=== PATIENT | male | born 2000 | race Two or more races ===

== ENCOUNTER 2025-02-24 18:53 | Emergency (ER) | payer MEDICAID, OTHER ==
[~2025-02-24] VITALS: Ht 182.9 cm; Wt 90.6 kg
[2025-02-24 19:05] VITALS: BP 150/99; PULSE 97; RESP 16; TEMP 98; O2SAT 96
[2025-02-24] MEDS: cefTRIAXone SOD 1,000 MG VL IM ONE (20:20)
[2025-02-24] MEDS: AZITHROMYCIN 250 MG TAB PO ONE (20:20)
[2025-02-24] MEDS ORDERED: METH4PAK PO (20:26)
--- NOTE | 2025-02-24 20:30 | ED.PDOC ---
SOB-HPI HPI Comments 24-year-old male presents to ED chief complaint joint pain. States around 2 weeks ago he was sick with flu-like symptoms which have resolved. The past week patient has been experience intermittent joint pain wrists elbows and knees. Isn't taking anything [id number] for the pain. Patient also states possible exposure to STD he he notes 1 of his partners informed him she tested positive for chlamydia patient does say that he does not use protection also states he has no symptoms currently and would like to get treated. Fever, chills, nausea, vomiting, chest pain, abdominal pain, CRI, penile discharge, shortness of breath, or difficulty breathing. Chief Complaint: Flu like Time Seen by MD: 19:09 Primary Care Provider: NONE Reviewed notes: Nurses Notes, Medications, Allergies Information Source: Patient Mode of Arrival: Ambulatory Past Medical History PAST MEDICAL HISTORY: Denies Surgical History: Denies all surgeries Family History Family History: Reviewed,noncontributory to illness Social History Smoker: Non-Smoker Alcohol: Denies ETOH Use Drugs: Denies Drug Use Constitutional: denies: chills, diaphoresis, fatigue, fever, malaise, sweats, weakness, others EENTM: denies: blurred vision, double vision, ear bleeding, ear discharge, ear drainage, ear pain, ear ringing, eye pain, eye redness, hearing loss, mouth pain, mouth swelling, nasal discharge, nose bleeding, nose congestion, nose pain, photophobia, tearing, throat pain, throat swelling, voice changes, others Respiratory: denies: cough, hemoptysis, orthopnea, SOB at rest, shortness of breath, SOB with excertion, stridor, wheezing, others Cardiovascular: denies: chest pain, dizzy spells, diaphoresis, Dyspnea on exertion, edema, irregular heart beat, left arm pain, lightheadedness, palpitations, PND, syncope, others Gastrointestinal: denies: abdomen distended, abdominal pain, blood streaked bowels, constipated, diarrhea, dysphagia, difficulty swallowing, hematemesis, melena, nausea, poor appetite, poor fluid intake, rectal bleeding, rectal pain, vomiting, others Genitourinary: denies: burning, dysuria, flank pain, frequency, hematuria, incontinence, penile discharge, penile sore, pain, testicle pain, testicle swelling, urgency, others Neurological: denies: dizziness, fainting, headache, left sided numbness, left sided weakness, numbness, paresthesia, pre-existing deficit, right sided numbness, right sided weakness, seizure, speech problems, tingling, tremors, weakness, others Musculoskeletal: reports: joint pain, muscle pain; denies: back pain, gout, joint swelling, muscle stiffness, neck pain, others Integumetry: denies: bruises, change in color, change in hair/nails, dryness, laceration, lesions, lumps, rash, wounds, others Allergic/Immunocompromised: denies: Difficulty Healing, Frequent Infections, Hives, Itching, others Hematologic/Lymphatic: denies: anemia, blood clots, easy bleeding, easy bruising, swollen glands, others Endocrine: denies: excessive hunger, excessive sweating, excessive thirst, excessive urination, flushing, intolerance to cold, intolerance to heat, unexplained weight gain, unexplained weight loss, others Psychiatric: denies: anxiety, bipolar disorder, depression, hopeless, panic disorder, schizophrenia, sleepless, suicidal, others Physical Exam General Appearance: No Apparent Distress, Normal HEENT: Normal ENT Inspection, Pharynx Normal, TMs Normal Neck: Full Range of Motion, Non-Tender, Normal, Normal Inspection Respiratory: Lungs Clear, No Respiratory Distress, Normal Breath Sounds Cardiovascular: No Edema, No JVD, No Murmur, No Gallop, Normal Peripheral Pulses, Regular Rate/Rhythm Breast Exam: Deferred Gastrointestinal: No Organomegaly, Non Tender, No Pulsatile Mass, Normal Bowel Sounds, Soft Genitalia: Deferred Pelvic: Deferred Rectal: Deferred Extremities: Normal capillary refill, Normal inspection, Normal range of motion, Non-tender, No pedal edema Musculoskeletal : Apperance: Normal Neurologic: Alert, street vendor II-XII nml as Tested, No Motor Deficits, Normal Affect, Normal Mood, No Sensory Deficits Cerebellar Function: Normal Reflexes: Normal Skin: Dry, Normal Color, Warm Lymphatic: No Adenopathy Was a procedure done? Was a procedure done?: No Differential Dx Differential Diagnosis: Pneumonia, Sinusitis, Allergic Rhinitis, Otitis Media X-Ray, Labs, Meds, VS Vital Signs Date Time Temp Pulse Resp B/P (MAP) Pulse Ox O2 Delivery O2 Flow Rate FiO2 02/24/25 19:05 98.0 97 16 150/99 (116) 96 98.0 02/24/25 19:05 97 16 96 Room Air 02/24/25 19:00 98.0 97 16 150/99 (116) 96 98.0 Current Medications Medications (Trade) Dose Ordered Sig/Roxanne Route Start Time Stop Time Status Last Admin Ceftriaxone Sodium (Rocephin) 1,000 mg ONCE ONCE IM 02/24/25 20:15 02/24/25 20:16 DC 02/24/25 20:20 Azithromycin (Zithromax Tablet) 1,000 mg ONCE ONCE PO 02/24/25 20:15 02/24/25 20:16 DC 02/24/25 20:20 X-Ray, Labs, Meds, VS Comment Likely post subacute COVID symptoms with COVID 19. Taking multivitamin vitamin- D. Patient treated for possible exposure to STD Rocephin 1 g IM and azithromycin 1 g p.o.. Advised on side effects. Follow up with his PCP in 2-3 days as necessary. The call Tylenol or Motrin as needed for the joint pain per label dosing instructions. ER return precautions given patient indicates understanding and agrees with discharge plan of care. Time of 1ST Reevaluation: 20:22 Reevaluation 1ST: Improved Patient Education/Counseling: Diagnosis, Treatment, Prognosis, Need For Follow Up Family Education/Counseling: No Family Present Departure 1 Departure Time of Disposition: 20:25 Impression: Primary Impression: Possible exposure to STD Additional Impression: Joint pain Qualified Codes: M25.50 - Pain in unspecified joint Disposition: 01 HOME / SELF CARE / HOMELESS Condition: Stable e-Prescriptions Methylprednisolone (Medrol Dosepak) 4 Mg Feng 4 MG PO UD for 6 Days, #21 TAB UAD Prov: VIKTORIYA DARBY 02/24/25 Discharged With: Self Critical Care Note Critical Care Time?: No Stability Stability form required: No Heart Score Heart Score: Heart Score Response (Comments) Value History N/A 0 EKG N/A 0 Age <45 0 Risk Factors N/A 0 Troponin N/A 0 Total 0 VIKTORIYA DARBY Feb 24, 2025 20:30
== END 2025-02-24 20:46 | disposition home or self-care (01) ==
LOC: ER 18:53
DX: M25.529 Pain in unspecified elbow (principal); M25.539 Pain in unspecified wrist; M25.569 Pain in unspecified knee
CPT/HCPCS: 96372; 99283; J0696

== ENCOUNTER 2025-02-25 13:06 | Emergency (ER) | payer MEDICAID ==
[~2025-02-25] VITALS: Ht 180.3 cm; Wt 89.2 kg
[~2025-02-25 13:06] MED LIST: METH4PAK PO
--- NOTE | 2025-02-25 16:00 | ED.PDOC ---
Musculoskeletal HPI Comments A 24-year-old male with no past medical history presents to the emergency department with a chief complaint of bilateral elbow and wrist pain onset 4 days. Patient states he has been experiencing bilateral elbow, wrist pain for the past 4 days, noticed joints get swollen and red, intermittently. He was seen in this ED yesterday, states he was prescribed medication but did not take it, returned today for a second opinion. No other symptoms or modifying factors present at this time. Denies fevers chills night sweats nausea vomiting Denies previous surgeries to the shoulder, wrist, elbow or significant injury Numbness/tingling down the arm Denies changes, shortness of breath Denies head injury Chief Complaint: Upper Extremity Time Seen by MD: 15:00 Primary Care Provider: Sarath Valladares Notes: Nurses Notes, Medications, Allergies Allergies: Coded Allergies: NO KNOWN ALLERGIES (Unverified , 02/24/25) Home Meds Active Scripts Methylprednisolone (Medrol Dosepak) 4 Mg Feng, 4 MG PO UD for 6 Days, #21 TAB UAD Prov:VIKTORIYA DARBY [facility] 02/24/25 Information Source: Patient Mode of Arrival: Ambulatory Location: Bilateral Extremity Location: Elbow, Wrist Timing: Days Prehospital treatment: None Severity: Moderate Able to Move Extremity: Yes Bear Weight: Fully Pain: Moderate Mechanism: Spontaneous Circumstances: Spontaneous Onset of Symptoms: Spontaneous Symptoms: Swelling, Pain, Erythema DVT Risk Factors: NONE Last Tetanus: UTD Associated signs and symptoms: Wrist pain, Elbow pain Past Medical History PAST MEDICAL HISTORY: Denies Surgical History: Denies all surgeries Family History Family History: Reviewed,noncontributory to illness Social History Smoker: Non-Smoker Alcohol: Occasionally Drugs: Denies Drug Use, Marijuana Lives In: Home All Other Systems: Reviewed and Negative (as per HPI) Physical Exam General Appearance: No Apparent Distress, Normal HEENT: Normal ENT Inspection, Pharynx Normal, TMs Normal Neck: Full Range of Motion, Non-Tender, Normal, Normal Inspection Respiratory: Chest Non-Tender, Lungs Clear, No Accessory Muscle Use, No Respiratory Distress, Normal Breath Sounds Cardiovascular: No Edema, No JVD, No Murmur, No Gallop, Normal Peripheral Pulses, Regular Rate/Rhythm Breast Exam: Deferred Gastrointestinal: No Organomegaly, Non Tender, No Pulsatile Mass, Normal Bowel Sounds, Soft Genitalia: Deferred Pelvic: Deferred Rectal: Deferred Extremities: No calf tenderness, Normal capillary refill, Normal inspection, Normal range of motion, Non-tender, No pedal edema Musculoskeletal : Location: Bilateral Extremity Location: Elbow, Wrist, Other (no swelling, full passive and act hugh ROM, no TTP, neurovascular intact, radial pulses 2+ ) Apperance: Normal Neurologic: Alert, pediatric allergist II-XII nml as Tested, No Motor Deficits, Normal Affect, Normal Mood, No Sensory Deficits Cerebellar Function: Normal Reflexes: Normal Skin: Dry, Normal Color, Warm Lymphatic: No Adenopathy Was a procedure done? Was a procedure done?: No Differential Diagnosis EXT Differential Diagnosis: Cellulitis, Deep Vein Thrombosis, Sprain, Other X-Ray, Labs, Meds, VS Vital Signs Date Time Temp Pulse Resp B/P (MAP) Pulse Ox O2 Delivery O2 Flow Rate FiO2 02/25/25 17:44 98.7 78 16 131/78 (95) 98 98.7 02/25/25 13:54 83 14 95 Room Air 02/25/25 13:54 99.6 83 14 132/71 (91) 95 99.6 02/25/25 13:28 99.6 83 16 132/71 (91) 95 99.6 Lab Test 02/25/25 15:45 Range/Units White Blood Count 7.6 4.4-10.8 10^3/uL Red Blood Count 5.51 4.5-5.90 10^6/uL Hemoglobin 16.3 13.5-17.5 g/dL Hematocrit 46.5 41.0-53.0 % Mean Corpuscular Volume 84.3 80.0-100.0 fL Mean Corpuscular Hemoglobin 29.6 28.0-32.0 pg Mean Corpuscular Hemoglobin Concent 35.1 32.0-36.0 g/dL Red Cell Distribution Width 12.9 11.8-14.3 % Platelet Count 297 140-450 10^3/uL Mean Platelet Volume 7.4 6.9-10.8 fL Neutrophils (%) (Auto) 61.0 37.0-80.0 % Lymphocytes (%) (Auto) 32.3 10.0-50.0 % Monocytes (%) (Auto) 5.2 0.0-12.0 % Eosinophils (%) (Auto) 0.6 0.0-7.0 % Basophils (%) (Auto) 0.9 0.0-2.0 % Neutrophils # (Auto) 4.6 1.6-8.6 10 ^3/uL Lymphocytes # (Auto) 2.4 0.4-5.4 10 ^3/uL Monocytes # (Auto) 0.4 0-1.3 10 ^3/uL Eosinophils # (Auto) 0 0-0.8 10 ^3/uL Basophils # (Auto) 0.1 0-0.2 10 ^3/uL Nucleated Red Blood Cells 0.5 % Sodium Level 143 136-145 mmol/L Potassium Level 4.1 3.5-5.1 mmol/L Chloride Level 109 H 98-107 mmol/L Carbon Dioxide Level 28 20-31 mmol/L Anion Gap 6 5-15 Blood Urea Nitrogen 10 9-23 mg/dL Creatinine 0.96 0.700-1.30 mg/dL Glomerular Filtration Rate Calc 112 >90 mL/min BUN/Creatinine Ratio 10.4 10.0-20.0 Serum Glucose 92 74-106 mg/dL Calcium Level 10.4 8.7-10.4 mg/dL DIAGNOSTIC IMAGING Diagnostic Imaging Report : [id number] Signed PATIENT: LIZABETH LARSEN ACCT: [id number] UNIT: [id number] : 2000 LOC: ER ROOM / BED: / AGE / SEX: 24 / M ADM STATUS: REG ER SERVICE [id number] ORDERING PHYSICIAN: MARCUS ADAMS NP PROCEDURE(s): LUDVT - LT Upper DVT REASON: ELBOW PAIN ORDER NUMBER(s): [id number], ACCESSION NUMBER(s): [id number] Left upper extremity venous Doppler INDICATION: ELBOW PAIN TECHNIQUE: Duplex venous sonography was performed with real-time and flow sensitive images submitted for evaluation. FINDINGS: Normal phasic venous flow. Veins are fully compressible. No filling defects. IMPRESSION: 1. No evidence of deep vein thrombosis left upper extremity.. ATED BY: DESTINI HERNANDEZ MD DICTATED DATE/TIME: 02/25/251733 SIGNED BY: DESTINI HERNANDEZ MD SIGNED DATE/TIME: 02/25/251733 CC: X-Ray, Labs, Meds, VS Comment A 24-year-old male with no past medical history presents to the emergency department with a chief complaint of bilateral elbow and wrist pain onset 4 days. The patient presents with signs and symptoms concerning for deep venous thrombosis. The differential diagnosis includes but is not limited to: DVT, thrombophlebitis, trauma, venous stasis, peripheral edema, cellulitis. Peripheral IV insertion+ labs were ordered. CBC was ordered to exclude anemia, blood loss, or infection. BMP was ordered to exclude electrolyte abnormalities, renal failure, dehydration, hyperglycemia Diagnostic imaging ordered by me and results interpreted by radiology : US LT UPPER DVT: NEG. On reevaluation, patient had symptomatic improvement. Patient is stable for discharge at this time. External notes reviewed. Test results and diagnostic imaging interpreted. All diagnostic findings, discharge care, education and instructions provided Follow-up with PCP in 2 to 3 days Patient verbalized understanding and agreed to treatment plan Vital signs stable, afebrile, no acute distress noted Patient ambulatory with strong steady gait Advised to return precautions for any new or worsening symptoms, return to ER immediately for re-evaluation Patient is aware that the purpose of this visit was for an acute medical emergency requiring emergent stabilization. Chronic conditions, including malignancies have not been ruled out. Patient is instructed to follow up with PCP as directed and discharge instructions for continued care and workup. If unable to arrange follow-up, patient is to return to the emergency department for reassessment. Patient (parent or legal guardian if applicable) was given verbal and written discharge instructions and acknowledges understanding. Additional MDM Review of External, Non-ED records: External records reviewed. Discussion with independent historian (EMS, family) history obtained from the pa tient/parents (if applicable) at bedside Chronic conditions affecting care: None Social determinants of health affecting care: marijuana, ETOH occasionally Consideration of admission (observation or admission): I considered escalation of care to admission for this patient, however given the reassuring workup, the patient is safe for outpatient management. Time of 1ST Reevaluation: 15:30 Reevaluation 1ST: Improved Patient Education/Counseling: Diagnosis, Treatment, Need For Follow Up Family Education/Counseling: No Family Present Departure 1 Departure Time of Disposition: 17:38 Impression: Primary Impression: Left arm pain Disposition: 01 HOME / SELF CARE / HOMELESS Condition: Stable Discharged With: Self Critical Care Note Critical Care Time?: No Stability Stability form required: No Heart Score Heart Score: Heart Score Response (Comments) Value History N/A 0 EKG N/A 0 Age N/A 0 Risk Factors N/A 0 Troponin N/A 0 Total 0 I personally scribed for MARCUS ADAMS NP ([email or web address]) on 02/25/25 at 16:00. Electr onically submitted by Rohini Paige ([email or web address]). I personally scribed for MARCUS ADAMS NP ([email or web address]) on 02/25/25 at 17:46. Electronically submitted by Rohini Paige ([email or web address]). I personally scribed for MARCUS ADAMS NP ([employer]) on 02/25/25 at 17:47. Electronically submitted by Rohini Paige ([email or web address]). MARCUS ADAMS NP Feb 25, 2025 16:00
[2025-02-25 16:03] LABS: Basophils # (auto) 0.1 10 ^3/uL (0-0.2); Basophils % (auto) 0.9 % (0.0-2.0); Eosinophils # (auto) 0 10 ^3/uL (0-0.8); Eosinophils % (auto) 0.6 % (0.0-7.0); Hematocrit 46.5 % (41.0-53.0); Hemoglobin 16.3 g/dL (13.5-17.5); Lymphocytes # (auto) 2.4 10 ^3/uL (0.4-5.4); Lymphocytes % (auto) 32.3 % (10.0-50.0); Mean Corpuscular Hemoglobin 29.6 pg (28.0-32.0); Mean Corpuscular Hgb Conc. 35.1 g/dL (32.0-36.0); Mean Corpuscular Volume 84.3 fL (80.0-100.0); Monocytes # (auto) 0.4 10 ^3/uL (0-1.3); Monocytes % (auto) 5.2 % (0.0-12.0); Neutrophils # (auto) 4.6 10 ^3/uL (1.6-8.6); Nucleated Red Blood Cells % 0.5 %; Platelet Count (auto) 297 10^3/uL (140-450); Red Blood Cells 5.51 10^6/uL (4.5-5.90); Red Cell Distribution Width 12.9 % (11.8-14.3); White Blood Cell 7.6 10^3/uL (4.4-10.8)
[2025-02-25 16:11] LABS: Potassium 4.1 mmol/L (3.5-5.1); Sodium 143 mmol/L (136-145)
[2025-02-25 16:12] LABS: Anion Gap 6 (5-15); Calcium 10.4 mg/dL (8.7-10.4); Carbon Dioxide 28 mmol/L (20-31)
[2025-02-25 16:17] LABS: BUN/Creatinine Ratio 10.4 (10.0-20.0); Blood Urea Nitrogen 10 mg/dL (9-23); Glucose 92 mg/dL (74-106)
[2025-02-25 16:18] LABS: Chloride 109 mmol/L (98-107)
--- NOTE | 2025-02-25 17:36 | DVH ---
Left upper extremity venous Doppler INDICATION: ELBOW PAIN TECHNIQUE: Duplex venous sonography was performed with real-time and flow sensitive images submitted for evaluation. FINDINGS: Normal phasic venous flow. Veins are fully compressible. No filling defects. IMPRESSION: 1. No evidence of deep vein thrombosis left upper extremity..
[2025-02-25 17:44] VITALS: BP 131/78; PULSE 78; RESP 16; TEMP 98.7; O2SAT 98
== END 2025-02-25 17:45 | disposition home or self-care (01) ==
LOC: ER 13:06
DX: M25.522 Pain in left elbow (principal); M25.521 Pain in right elbow; M25.531 Pain in right wrist; M25.532 Pain in left wrist
CPT/HCPCS: 36415; 80048; 85025; 93971